=== PATIENT | female | born 1960 | race Caucasian/White ===

== ENCOUNTER 2016-08-20 07:42 | Emergency (ER) | payer OTHER ==
[~2016-08-20] VITALS: Ht 160 cm; Wt 80.0 kg
[~2016-08-20 07:42] MED LIST: ALPR.25 PO; LIPI10TA PO; MOTI25CH PO
[2016-08-20 07:49] VITALS: BP 121/78; PULSE 85; RESP 18; TEMP 98.2; O2SAT 99
[2016-08-20] MEDS ORDERED: ALPR.25 PO (08:00)
[2016-08-20] MEDS ORDERED: LIDOCAINE HCL 1% 50 ML VIAL INFIL ONE (08:00)
[2016-08-20] MEDS ORDERED: hormones (08:00)
[2016-08-20] MEDS ORDERED: IBUP-1129 PO (08:22)
[2016-08-20] MEDS ORDERED: BACT800T5 PO (08:22)
--- NOTE | 2016-08-20 08:22 | PD ---
HPI Chief Complaint: Skin Problem Time Seen by Provider: 07:59 Travel History International Travel<30 days: No Contact w/Intl Traveler<30days: No Traveled to known affect area: No History of Present Illness HPI 56-year-old female patient presents to the ER today because she states she has had several days history of groin area lumps which are becoming more painful and swollen. She denies any fevers or any other issues. Pain is currently a 10 out of 10. Modifying Factors: None Associated Signs & Symptoms: Groin area abscess Risk Factors: None PFSH Past Medical History Diabetes: No Diminished Hearing: No Musculoskeletal: Yes (LOW BACK PAIN) Immunizations Current: No Influenza Vaccination: No ?: Not Past Surgical History Hysterectomy: Yes Tonsillectomy: Yes Other Surgery: Yes (breast biopsy-neg.) Social History Alcohol Use: No Tobacco Use: Yes (1/2 PPD) Substance Use: No Allergies-Medications (Allergen,Severity, Reaction): Coded Allergies: Lortab (Verified Allergy, Mild, ITCHY, 08/20/16) Pt. denies allergy to lortab Codeine (Verified Adverse Reaction, Severe, NAUSEA, 08/20/16) Reported Meds & Prescriptions Reported Meds & Active Scripts Active Bactrim DS (Sulfamethoxazole-Trimethoprim) 800-160 Mg Tab 1 Tab PO BID Reported [hormones] 0 Xanax (Alprazolam) 0.25 Mg Tab 0.25 Mg PO HS PRN Review of Systems Except as stated in HPI: all other systems reviewed are Neg Physical Exam Narrative GENERAL: This is a well-nourished, well-developed patient, in mild distress. SKIN: No rashes. Cool and dry. External female genitalia within normal limits with a notable erythematous, tender, 2 cm nodule on the lateral part of the right labia majora which is fluctuant, draining pus from a small opening. And notable point area erythematous tender nodules. Data Data Last Documented VS Vital Signs Date Time Temp Pulse Resp B/P Pulse Ox O2 Delivery O2 Flow Rate FiO2 08/20/16 07:49 98.2 85 18 121/78 99 Orders Lidocaine 1% Inj (50 Ml) (Xylocaine 1% I (08/20/16 08:00) MDM Medical Decision Making Medical Screen Exam Complete: Yes Emergency Medical Condition: Yes Medical Record Reviewed: Yes Differential Diagnosis Labia majora abscess Narrative Course I&D was performed on abscess and a small wick was placed. At this point, my plan would be to put her on antibiotics and have her follow-up as needed with primary care physician. Wound care instructions given. Return for any worsening in pain or new symptoms as needed. The plan has been discussed with the patient and she states understanding. Procedures Procedure Narrative INCISION AND DRAINAGE OF ABSCESS: The area was prepped and was sterilely draped. A subcutaneous wheal of % Xylocaine 1 with a total number 1 mL was used to anesthetize the area. The area was properly anesthetized. A number small scalpel was used to make a 1-cm incision across the area of the abscess. Cultures were obtained. The abscess was drained an irrigated with normal saline. Quarter inch iodoform packing was placed in the wound. Sterile dressing applied. Patient advised to have packing removed in two days. Diagnosis Primary Impression: Groin abscess Med/Other Pt SpecificInfo: Prescription(s) given Scripts Ibuprofen (Motrin Ib)200 Mg [id number] Mg PO QID PRN (PAIN SCALE 1 TO 10) #20 Prov:Quinten Friend MD 08/20/16 Sulfamethoxazole-Trimethoprim (Bactrim DS)800-160 Mg Tab1 Tab PO BID #14 TAB Ref 0 Prov:Quinten Friend MD 08/20/16 Disposition: 01 DISCHARGE HOME Condition: Stable Quinten Friend MD August 20, 2016 08:22
== END 2016-08-20 08:37 | disposition home or self-care (01) ==
LOC: PHED 07:42
DX: L02.214 Cutaneous abscess of groin (principal); F17.200 Nicotine dependence, unspecified, uncomplicated
CPT/HCPCS: 10061; 86403; 87070

== ENCOUNTER 2016-12-31 14:07 | Emergency (ER) | payer OTHER ==
[~2016-12-31] VITALS: Ht 160 cm; Wt 70.0 kg
[~2016-12-31 14:07] MED LIST changes: +BACT800T5 PO; +IBUP-1129 PO; -LIPI10TA PO; -MOTI25CH PO; +hormones
[2016-12-31 14:11] VITALS: BP 137/75; PULSE 95; RESP 20; TEMP 98.3; O2SAT 97
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
[2016-12-31] MEDS ORDERED: ROBA500T PO (15:10)
[2016-12-31] MEDS ORDERED: IBUP800T23 PO (15:10)
[2016-12-31] MEDS ORDERED: KETOROLAC TROMETHAMINE 60 MG/2 ML (IM) VIAL IM ONE (15:15)
[2016-12-31] MEDS ORDERED: ORPHENADRINE INJ 60 MG/2 ML AMP IM ONE (15:15)
== END 2016-12-31 15:23 | disposition home or self-care (01) ==
LOC: NEPK 14:07
DX: S39.012A Strain of muscle, fascia and tendon of lower back, initial encounter (principal); M54.41 Lumbago with sciatica, right side; V49.49XA Driver injured in collision with other motor vehicles in traffic accident, initial encounter; Z72.0 Tobacco use
CPT/HCPCS: 96372; 99284; J1885; J2360